=== PATIENT | male | born 1990 | race Caucasian/White ===

== ENCOUNTER 2020-11-12 10:27 | Outpatient (CLI) | payer SELFPAY ==
[2020-11-13 03:39] LABS: SARS-CoV-2 NAA Rapid Test Not Detected (NotDetected)
== END 2020-11-12 10:28 | disposition home or self-care (01) ==
LOC: LABBT 10:27
PROVIDERS: ATTEND Surgery Surgery of the Hand
DX: Z01.812 Encounter for preprocedural laboratory examination (principal); S56.421A Laceration of extensor muscle, fascia and tendon of right index finger at forearm level, initial encounter; Z20.822 Contact with and (suspected) exposure to COVID-19
CPT/HCPCS: 0241U

== ENCOUNTER 2020-11-13 10:31 | Day surgery (SDC) | payer OTHER ==
[2020-11-12 12:29] VITALS: BMI 23.1
[2020-11-13] MEDS ORDERED: Lidocaine 1% (PF) 30 ML VIAL ONE (11:40)
[2020-11-13] MEDS ORDERED: Bupivacaine 0.25% HCL 30 ML VIAL ONE (11:40)
[2020-11-13] MEDS ORDERED: EPINEPHrine 1 MG/ML AMP ONE (11:40)
[2020-11-13] MEDS ORDERED: Fentanyl 100 MCG/2 ML VIAL ONE (12:04)
[2020-11-13] MEDS ORDERED: Lidocaine 1% w/Epinephrine 1:100K 20 ML VIAL ONE (12:13)
[2020-11-13] MEDS ORDERED: Lidocaine 1% PF 5 ML VIAL ONE (12:37)
[2020-11-13] MEDS ORDERED: PROPOFOL 200 MG/20 ML VIAL ONE (12:37)
[2020-11-13] MEDS ORDERED: Ondansetron PF 4 MG/2 ML Vial ONE (12:37)
[2020-11-13] MEDS ORDERED: PHENYLEPHRINE-NS 100 MCG/ML 10 ML SYRINGE ONE (12:37)
[2020-11-13] MEDS ORDERED: Dexamethasone 20 MG/5 ML VIAL ONE (12:37)
[2020-11-13] MEDS ORDERED: Ketorolac Tromethamine 30 MG/ML VIAL ONE (12:37)
[2020-11-13] MEDS ORDERED: Bacitracin Zinc Ointment 30 gm TUBE ONE (13:30)
== END 2020-11-13 15:24 | disposition home or self-care (01) ==
LOC: SDC 10:31
PROVIDERS: ATTEND Surgery Surgery of the Hand
PROC: 0LQ70ZZ Repair Right Hand Tendon, Open Approach (ICD-10-PCS; principal; 2020-11-13)
DX: S66.322A Laceration of extensor muscle, fascia and tendon of right middle finger at wrist and hand level, initial encounter (principal); S62.622A Displaced fracture of middle phalanx of right middle finger, initial encounter for closed fracture; X58.XXXA Exposure to other specified factors, initial encounter; Y99.0 Civilian activity done for income or pay
CPT/HCPCS: C1713; J0171; J0690; J1100; J1885; J2001; J2405; J2704; J3010; S0020